=== PATIENT | male | born 1980 | race Two or more races ===

== ENCOUNTER 2023-09-02 20:55 | Emergency (ER) | payer MEDICAID ==
[~2023-09-02] VITALS: Ht 175.3 cm; Wt 79.5 kg
[2023-09-02] MEDS ORDERED: MIDAZOLAM HCL 5 MG/ML VIAL ONE (21:26)
[2023-09-02] MEDS: MIDAZOLAM HCL 5 MG/ML VIAL IM ONE (21:37)
[2023-09-02 21:38] VITALS: TEMP 98.9
[2023-09-02 21:57] VITALS: BP 137/93; PULSE 97; RESP 20
[2023-09-02 22:01] LABS: BASOPHILS % (AUTO) 0.3 % (0.0-2.0); EOSINOPHILS % (AUTO) 0 % (1.0-6.0); HEMOGLOBIN 16.1 g/dL (13.5-17.5); LYMPHOCYTES # (AUTO) 0.9 K/uL (1.0-4.8); LYMPHOCYTES % (AUTO) 7.3 % (22.0-44.0); MEAN CORPUSCULAR HEMOGLOBIN 30.4 pg (26.0-34.0); MEAN CORPUSCULAR HGB CONC 34.3 G/dL (31.0-37.0); MEAN CORPUSCULAR VOLUME 89 fL (80-100); MONOCYTES # (AUTO) 0.6 K/uL (0.1-1.0); MONOCYTES % (AUTO) 5.1 % (2.0-9.0); PLATELET COUNT (AUTO) 186 K/uL (150-450); RED CELL DISTRIBUTION WIDTH 13.2 % (11.5-14.5); WHITE BLOOD COUNT (AUTO) 12.6 K/uL (4.5-11.0)
[2023-09-02 22:02] LABS: NEUTROPHILS % (AUTO) 87.3 % (40.0-70.0)
[2023-09-02 22:07] LABS: ANION GAP 13 mmol/L (8-16); CARBON DIOXIDE 25 mmol/L (22-29); CHLORIDE 99 mmol/L (98-107); CREATININE 1.35 mg/dL (0.60-1.30); GLOMERULAR FILTR. RATE CALC 46 mL/min (>60); GLUCOSE,RANDOM 113 mg/dL (70-110); POTASSIUM 3.9 mmol/L (3.5-5.1); SODIUM SERUM 137 mmol/L (136-145); UREA NITROGEN, BLOOD 14 mg/dL (7-18)
[2023-09-02 22:13] LABS: ALANINE AMINOTRANSFERASE 78 U/L (12-78); ALKALINE PHOSPHATASE 100 U/L (46-116); ASPARTATE AMINOTRANSFERASE 183 U/L (15-37); TOTAL PROTEIN, SERUM 7.7 g/dL (6.4-8.2)
[2023-09-02 22:16] LABS: ALCOHOL, BLOOD (SERUM) < 3 mg/dL (0-10)
[2023-09-02 22:17] LABS: PLATELET MORPHOLOGY COMMENT GIANT PLTS PRESENT; RBC MORPHOLOGY COMMENT NORMAL RBC MORPH
== END 2023-09-02 22:38 ==
LOC: EMS 20:57 → EDBD 20:57 → EMS 22:38
DX: F15.959 Other stimulant use, unspecified with stimulant-induced psychotic disorder, unspecified (principal)
CPT/HCPCS: 99283; 80053; 85025; 36415; 96372; G0480; J2250